=== PATIENT | male | born 1970 | race Caucasian/White ===

== ENCOUNTER 2024-01-14 08:05 | Day surgery (SDC) | payer BC ==
[~2024-01-14 08:05] MED LIST: Sodium Chloride 0.9% 10 ML Syringe FLUSH PRN; Sodium Chloride 0.9% 10 ML Syringe FLUSH SCH
[2024-01-14] MEDS: Lactated Ringers 1,000 ML IV SCH (08:25)
[2024-01-14] MEDS ORDERED: fentaNYL 100 MCG/2 ML SDV IVPUSH PRN (08:58)
[2024-01-14] MEDS ORDERED: Ondansetron 4 MG/2 ML SDV IVPUSH PRN (08:58)
[2024-01-14] MEDS ORDERED: HYDROmorphone 0.5 MG/0.5 ML Syringe IVPUSH PRN (08:58)
[2024-01-14] MEDS ORDERED: fentaNYL 100 MCG/2 ML SDV ONE (09:13)
[2024-01-14] MEDS ORDERED: Propofol 200 MG/20 ML SDV ONE ×4 (09:13)
[2024-01-14] MEDS ORDERED: Ketamine 200 MG/20 ML MDV ONE (09:13)
[2024-01-14] MEDS ORDERED: Midazolam 1 MG/ML 2 ML SDV ONE (09:14)
[2024-01-14] MEDS: Lidocaine 1% with EPINEPHrine 1:100,000 20 ML MDV ONE (09:38)
[2024-01-14] MEDS: Bupivacaine 0.5% 30 ML SDV ONE (09:38)
[2024-01-14] MEDS: EPINEPHrine 1 MG/ML SDV ONE (09:38)
[2024-01-14] MEDS ORDERED: Ondansetron 4 MG/2 ML SDV ONE (09:39)
== END 2024-01-14 10:40 | disposition home or self-care (01) ==
LOC: JD.SDS 08:05
PROVIDERS: ATTEND Surgery
DX: D17.1 Benign lipomatous neoplasm of skin and subcutaneous tissue of trunk (principal); E78.5 Hyperlipidemia, unspecified; Z87.891 Personal history of nicotine dependence
CPT/HCPCS: 21931; J0171; J0665; J2250; J2405; J2704; J3010; J7120; 00300; J3490